=== PATIENT | female | born 1965 | race Caucasian/White ===

== ENCOUNTER 2017-04-28 19:19 | Emergency (ER) | payer BC ==
[2017-04-28 19:59] VITALS: BP 142/90
--- NOTE | 2017-04-28 20:22 | UC ---
UC General HPI - HPI Summary HPI Summary: pt states got ill with cough and chest congestion a week ago. that is almost gone but now has a sore throat with mouth pain that radiates into her ears. 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 Hx Last Menstrual Period: DONE Onset/Duration: Gradual Onset, Still Present Pain Intensity: 7 Character: burning Aggravating: nothing Alleviating: nothing Associated Signs & Symptoms: Negative: Cough, Chest Pain, Fever, Headache - Allergy/Home Medications Allergies/Adverse Reactions: Allergies Allergy/AdvReac Type Severity Reaction Status Date / Time No Known Allergies Allergy Verified 04/28/17 19:50 Home Medications: Home Medications Dm/PE/Acetaminophen/Doxylamine [Daytime-Nighttime Cold-Flu] 2 each PO BID PRN [History Confirmed 04/28/17] GuaiFENesin DM* [Robitussin DM*] 10 ml PO Q6H PRN 04/28/17 [History Confirmed ] PMH/Surg Hx/FS Hx/Imm Hx Previously Healthy: Yes - Surgical History Surgical History: Yes Surgery Procedure, Year, and Place: 2 C-SECTIONS - Family History Known Family History: Positive: None - Social History Lives: With Family Alcohol Use: Rare Substance Use Type: None Smoking Status (MU): Current Every Day Smoker Type: Cigarettes Amount Used/How Often: 1/2 PPD Length of Time of Smoking/Using Tobacco: APPROX 11 YRS. - Immunization History Vaccination Up to Date: Yes Review of Systems Constitutional: Negative Skin: Negative Eyes: Negative ENT: Sore Throat, Ear Ache Respiratory: Negative Cardiovascular: Negative Gastrointestinal: Negative Genitourinary: Negative Motor: Negative Neurovascular: Negative Musculoskeletal: Negative Neurological: Negative Psychological: Negative Is Patient Immunocompromised?: No All Other Systems Reviewed And Are Negative: Yes Physical Exam Triage Information Reviewed: Yes Appearance: Well-Appearing Vital Signs: Initial Vital Signs Temp 98.4 F 04/28/17 19:54 Pulse 86 04/28/17 19:54 Resp 16 04/28/17 19:54 BP 142/90 04/28/17 19:54 Pulse Ox 99 04/28/17 19:54 Vital Signs Reviewed: Yes Eyes: Positive: Conjunctiva Clear ENT: Positive: Pharyngeal erythema - ? slight, TMs normal, Uvula midline. Negative: Nasal congestion, Nasal drainage, Tonsillar swelling, Tonsillar exudate, Trismus, Muffled voice, Hoarse voice Neck: Positive: Supple, Nontender, No Lymphadenopathy Respiratory: Positive: Lungs clear, Normal breath sounds, No respiratory distress Cardiovascular: Positive: RRR, No Murmur, Pulses Normal Abdomen Description: Positive: Nontender, No Organomegaly, Soft Bowel Sounds: Positive: Present Neurological: Positive: Alert Psychological: Positive: Age Appropriate Behavior Skin Exam: Normal Diagnostics - Laboratory Diagnostic Studies Completed/Ordered: rapid strep=neg Course/Dx - Course Course Of Treatment: rapid strep=neg. nothing to suggest bacterial infection. no oral lesions. will tx swish/spit - Differential Dx - Multi-Symptom Provider Diagnoses: stomatitis Discharge - Discharge Plan Condition: Stable Disposition: HOME Prescriptions: Magic Mouth Was-PRITI/MAAL/LIDO* 5 ml SWISH SPIT QID 5 Days #100 ml Patient Education Materials: Gingivostomatitis (ED) Referrals: Jennifer Lee NP [Primary Care Provider] - 5 Days
[2017-04-28] MEDS ORDERED: Al Hydrox/Mg Hydrox/Simet LIQ* 30 ML UDC PO ONE (20:23)
[2017-04-28] MEDS ORDERED: Magic Mouth Was-BEN/MAAL/LIDO SWISH SWAL SCH (21:00)
== END 2017-04-28 20:54 | disposition home or self-care (01) ==
LOC: UCCORT 19:19
DX: K12.1 Other forms of stomatitis (principal); F17.210 Nicotine dependence, cigarettes, uncomplicated
CPT/HCPCS: 87651; 99202; A9270-GY; G0463